=== PATIENT | female | born 1960 | race Caucasian/White ===

== ENCOUNTER 2018-01-04 07:29 | Day surgery (SDC) | payer BC ==
[2018-01-04] MEDS ORDERED: Sodium Chloride 0.9% 1,000 ML IV SCH (07:45)
[2018-01-04] MEDS ORDERED: Midazolam 1 MG/ML 2 ML SDV ONE (10:02)
[2018-01-04] MEDS ORDERED: fentaNYL 100 MCG/2 ML SDV ONE (10:02)
[2018-01-04] MEDS ORDERED: Propofol 200 MG/20 ML SDV ONE (10:02)
--- NOTE | 2018-01-04 12:59 | OR ---
DATE OF PROCEDURE: 01/04/2018 PROCEDURE: Colonoscopy. FINDINGS: 1. Diverticulosis. 2. No other gross abnormalities. COMPLICATIONS: None. PLASTIC AND RECONSTRUCTIVE SURGEON: None. ANESTHESIA: MAC. PREOPERATIVE DIAGNOSIS: Constipation. POSTOPERATIVE DIAGNOSIS: Constipation. RISKS: Risks, benefits, alternatives, and limitations including, but not limited to infection, bleeding, and perforation were explained to the patient who wished to proceed. PROCEDURE IN DETAIL: The patient was placed in the left lateral decubitus position. Digital rectal exam was performed without abnormality. The scope was introduced and advanced atraumatically to the ileocecal valve. The scope was brought back through the ascending, transverse, descending colon, and retroflexed. The patient had a large amount of retained liquid stool. No masses. No polyps. The patient did have diverticulosis, which is described as moderate, along with a very tortuous sigmoid colon. No other abnormalities on retroflex. The patient tolerated the procedure well. Yaw Sharpe MD /[id number]
== END 2018-01-04 11:48 | disposition home or self-care (01) ==
LOC: JP.SDS 07:29
PROVIDERS: ATTEND Surgery
DX: K59.00 Constipation, unspecified (principal); K57.30 Diverticulosis of large intestine without perforation or abscess without bleeding; I10 Essential (primary) hypertension; E11.9 Type 2 diabetes mellitus without complications
CPT/HCPCS: 45378; J2250; J2704; J3010; J7040; J7030